=== PATIENT | female | born 1985 | race Caucasian/White ===

== ENCOUNTER 2016-09-30 11:52 | Emergency (ER) | payer BC, OTHER ==
[~2016-09-30] VITALS: Ht 172.7 cm; Wt 97.2 kg
[2016-09-30 11:57] VITALS: TEMP 36.4; O2SAT 99; Ht 172.7 cm; Wt 97.2 kg
[2016-09-30] MEDS ORDERED: LEVO137T3 PO (12:35)
[2016-09-30] MEDS ORDERED: AMPH10CA3 PO (12:35)
[2016-09-30] MEDS ORDERED: [UNRECOGNIZED DRUG - CODE] PO (12:39)
[2016-09-30] MEDS ORDERED: MULT-506 PO (12:39)
[2016-09-30] MEDS ORDERED: OMEGCAP2 PO (12:39)
[2016-09-30] MEDS ORDERED: CETI10TA84 PO (12:42)
--- NOTE | 2016-09-30 14:05 | DIAGNOSTIC IMAGING REPORT ---
ULTRASOUND RIGHT VENOUS DOPP LOWER EXT UNILAT CLINICAL HISTORY: Right leg pain. Right leg edema. COMPARISON STUDY: No previous studies for comparison. FINDINGS: Real-time and color flow Doppler imaging were performed. Flow was seen within the femoral, popliteal and calf veins with no intraluminal thrombus demonstrated. The saphenous vein is patent. There is a superficial thrombus extending from the mid thigh to the proximal calf medially. IMPRESSION: 1. Thrombosed superficial vein extending to the mid thigh to the proximal calf medially. 2. No evidence of DVT. Electronically signed by: Bayron Dee M.D. 09/30/2016 2:03 PM Dictated Date/Time: 09/30/2016 2:01 PM
[2016-09-30 14:08] VITALS: BP 124/84; PULSE 74
--- NOTE | 2016-09-30 17:01 | EMERGENCY ROOM VISIT NOTE ---
History First contact with patient: 12:00 Chief Complaint: LEG PAIN,LEG INJURY Stated Complaint: LEG PAIN WITH REDNESS, POTENTIAL BLOOD CLOT History of Present Illness The patient is a 31 year old female who presents to the Emergency Room with complaints of an area of redness over her inner right thigh, knee and leg. The patient reports a strong family history of blood clots. The patient has also had a prior history of ITP. 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 The patient denies any personal history of DVT. She also denies any injury and proceeded this redness that she has noticed for the past 3-4 days. The patient does report a lot of sedentary activity with her work. She denies any abdominal pain, back pain, chest pain or shortness of breath. She rates her discomfort a 5 out of 10. Review of Systems 10 system review was performed and was negative except for pertinent positives and negatives as indicated in history of present illness Past Medical/Surgical History Medical Problems: (1) History of ITP Surgical Problems: (1) No history of previous surgery Family History Clotting disorder Social History Smoking Status: Never Smoker Alcohol Use: none Marital Status: single Occupation Status: employed Current/Historical Medications Scheduled Amphetamine-Dextroamphetamine 10MG (Adderall Xr 10MG), 10 MG PO UD Cetirizine (Zyrtec), 10 MG PO DAILY Levothyroxine Sodium (Levothyroxine Sodium), 1 TAB PO DAILY Multivitamin (Multivitamin), 1 TAB PO DAILY [place]-3 Fatty Acids (Fish Oil), 1 CAP PO BID [Thyrosol], 1 TAB PO DAILY Allergies Coded Allergies: Gluten (Unverified Allergy, Mild, GI SYMPTOMS, 09/30/16) Uncoded Allergies: PENICILLAN (Allergy, Unknown, 12/08/03) Physical Exam Vital Signs Date Time Temp Pulse Resp B/P Pulse Ox O2 Delivery O2 Flow Rate FiO2 09/30/16 14:08 74 16 124/84 09/30/16 11:57 36.4 85 18 142/86 99 Room Air Physical Exam CONSTITUTIONAL: Healthy and well nourished. Alert and oriented X 3 with positive affect. She does not appear in any acute distress. HEENT: Normocephalic, atraumatic. Pupils equal, round and reactive. No scleral icterus or conjunctival injection. NECK: Full active range of motion without discomfort. RESPIRATORY: Clear to auscultation bilaterally with no wheezing, crackles, rhonchi or stridor. CARDIOVASCULAR: Regular rate and rhythm with no murmurs, rubs or gallops. GASTROINTESTINAL: Bowel sounds present in all quadrants. Soft and nontender to palpation without obvious hepatosplenomegaly. MUSCULOSKELETAL: Full range of motion of the right knee without discomfort. The patient does have mild erythema over the medial thigh, knee and calf. Negative Homans sign. No popliteal masses. Negative logroll. Pedal pulses are intact. INTEGUMENTARY: No rash or other significant dermatologic conditions noted. NEUROLOGIC: No focal neurologic deficits noted. Right foot and toes are sensory intact. Medical Decision & Procedures ER Provider Diagnostic Interpretation: Venous ultrasound of the right lower extremity shows a superficial thrombus between the mid thigh and proximal calf medially. No DVT is noted. Radiologist report is as follows: ULTRASOUND RIGHT VENOUS DOPP LOWER EXT UNILAT CLINICAL HISTORY: Right leg pain. Right leg edema. COMPARISON STUDY: No previous studies for comparison. FINDINGS: Real-time and color flow Doppler imaging were performed. Flow was seen within the femoral, popliteal and calf veins with no intraluminal thrombus demonstrated. The saphenous vein is patent. There is a superficial thrombus extending from the mid thigh to the proximal calf medially. IMPRESSION: 1. Thrombosed superficial vein extending to the mid thigh to the proximal calf medially. 2. No evidence of DVT. ED Course Patient history and physical exam were performed. Nurse's notes were reviewed. The patient refused any analgesics. Venous ultrasound of the right lower extremity shows a superficial thrombus between the thigh and calf. There is no deep vein thrombosis noted. The patient was encouraged to apply heat. She was dispensed an Abdias wrap for the leg. I encouraged her to contact her maintenance groundman to advise them of her current condition. A copy of the patient's ultrasound and report was sent with the patient. The patient was happy with plan of care, and voiced understanding of all discharge instructions. Impression Primary Impression: Superficial thrombosis of right lower extremity Departure Information Referrals No Doctor, Assigned (PCP) Patient Instructions My [facility]
== END 2016-09-30 14:53 | disposition home or self-care (01) ==
LOC: C.EDB 11:56 → C.EDD 14:53
DX: I82.811 Embolism and thrombosis of superficial veins of right lower extremity (principal); Z79.899 Other long term (current) drug therapy; Z88.0 Allergy status to penicillin; Z91.018 Allergy to other foods